=== PATIENT | female | born 1980 | race Caucasian/White ===

== ENCOUNTER → 2018-01-06 | Outpatient (CLI) | payer OTHER ==
[2016-08-09 13:00] VITALS: BP 145/87
[~2018-01-06] MED LIST: AMOX1TAB61 PO; CIPR7.5D EACH EAR; FLUC150T PO; IBUP200T44 PO
--- NOTE | 2018-01-06 10:36 | RAD ---
Chest, 2 views, 01/06/2018: HISTORY: Cough, possible bronchitis The heart size is normal. The lungs are clear. There is no evidence of pleural fluid. IMPRESSION: No acute cardiopulmonary abnormality is detected. Electronically signed by: Navarro Wise MD (01/06/2018 10:33 AM) [facility]
== END | disposition home or self-care (01) ==
LOC: PMG 09:48
PROVIDERS: ATTEND Physician Assistant
DX: R05 Cough (principal)
CPT/HCPCS: 71046